=== PATIENT | female | born 1990 | race Caucasian/White ===

== ENCOUNTER 2017-06-01 19:18 | Emergency (ER) | payer OTHER, SELFPAY | END 2017-06-01 21:13 | disposition home or self-care (01) | PROVIDERS: Emergency Provider Emergency Medicine; Visit Provider Emergency Medicine | DX: N13.30 Unspecified hydronephrosis (principal) | CPT/HCPCS: 76770; 80048; 85025; 96361; 96374; 99058; 99284; J2405 ==

== ENCOUNTER 2018-12-06 10:22 | Emergency (ER) | payer SELFPAY ==
[2018-12-06 10:37] VITALS: BP 100/69; PULSE 70; RESP 12; TEMP 37.1; O2SAT 100
--- NOTE | 2018-12-06 11:16 | DI.US.S_ITS ---
PROCEDURE: US PELVIC COMPLETE INDICATIONS: ABD PAIN, UNABLE TO FEEL IUD STRINGS TECHNIQUE: Real-time scanning was performed of the pelvic organs, with image documentation. Additional endovaginal scanning was necessary due to incomplete visualization of the adnexal and endometrial structures by transabdominal scanning. COMPARISON: [facility], US, OB COMPLETE 14WKS OR MORE, 06/10/2017, 14:37. FINDINGS: Transabdominal scanning: Limited scanning through the kidneys shows no hydronephrosis. No pathologic free abdominal or pelvic fluid. Endovaginal scanning: Uterus: The uterus is normal in size and measures 8.0 x 4.1 x 5.4 cm. A small heterogeneous ovoid structure along the posterior aspect of the right uterus is identified that measures up to 2.5 cm. No additional myometrial lesions are evident. An intrauterine contraceptive device is appropriately positioned within the intrauterine cavity. The endometrium is normal in size and measures 6 mm in maximal combined thickness. No significant fluid is seen within the endometrium. Ovaries: The right ovary measures 3 point by 2.3 x 2.5 cm and is noted to be tender with sonographic imaging. No cystic or solid right ovary and lesion is evident. Normal follicles are present on the right ovary. Blood flow is demonstrated to the right ovary. However, an arterial Doppler waveform was not obtained. The left ovary is measuring within the upper limits of normal for size at approximately 4.8 x 2.5 x 2.2 cm. Follicles are present on the left ovary. There may be a small collapsing hemorrhagic left ovarian follicle measures up to approximately 1.6 x 0.9 cm. The left ovary is otherwise unremarkable. IMPRESSION: 1. Small intramural uterine fibroid. 2. Appropriately positioned intrauterine contraceptive device. 3. Unremarkable appearance of the ovaries with the exception of a possible small hemorrhagic/collapsing left ovarian follicle. No ovarian cysts. Dictated by: Khoa Villa M.D. on 12/06/2018 at 11:42 Approved by: Khoa Villa M.D. on 12/06/2018 at 11:45
--- NOTE | 2018-12-06 11:18 | ED.FEMALEGU ---
HPI - Female Genitourinary <DAGMAR Rinaldi - Last Filed: 12/06/18 13:26> General Chief complaint: Vaginal Bleeding Stated complaint: IUD issues Time Seen by Provider: 12/06/18 11:01 Source: patient Mode of arrival: Ambulatory Limitations: no limitations History of Present Illness HPI Narrative: The patient is a 28-year-old female nonsmoker who has had an IUD since August 2017 who presents with a chief complaint of abdominal pain and irregular vaginal bleeding. She states she had some vaginal bleeding yesterday. Complains of suprapubic cramping on going for the past few days. Has not taken anything to feel better. Denies any fevers nausea vomiting or diarrhea. She initially was concerned that her upset stomach was related to food intake. She denies any dysuria urgency or frequency. She states that she has not felt for her IUD strings for the past 6 months. She is not sure she still has it. She denies any possibility of sexually transmitted infections. She denies any regular vaginal discharge. States that her last bowel movement was this morning. Describes her abdominal pain is cramping 3/10. States she is unable to give a urine sample at this point. Related Data Previous Rx's Medication Instructions Recorded Breast Pump - Double Electric u SEE INSTRUCTIONS #1 04/10/17 Allergies Allergy/AdvReac Type Severity Reaction Status Date / Time No Known Allergies Allergy Mild Uncoded 12/06/18 10:40 Review of Systems <DAGMAR Rinaldi - Last Filed: 12/06/18 13:26> Review of Systems Narrative: GENERAL: Denies chills, fatigue, malaise, fever, sweats. HEENT: Denies sinus pain, ear pain, sore throat, difficulty swallowing, dizziness. RESPIRATORY: Denies dyspnea, cough, wheezing, hemoptysis, sputum. CARDIOVASCULAR: Denies chest pain, palpitations, orthopnea, edema, GASTROINTESTINAL: See HPI : See HPI MUSCULOSKELETAL: denies weakness, joint pain, or bony pain SKIN: Denies rash, skin lesions, or other NEUROLOGIC: Denies weakness, headache, numbness, change in speech, confusion, seizures, incoordination. PSYCHIATRIC: No concerning psychosocial issues. 12 point review of systems is negative except for those stated above PFSH <DAGMAR Rinaldi - Last Filed: 12/06/18 13:26> Medical History IUD (intrauterine device) in place (Acute) Social History Smoking Status: Never smoker Social History Smoking Status: Never smoker Exam <DAGMAR Rinaldi - Last Filed: 12/06/18 13:26> Narrative Exam Narrative: GENERAL: This is a well-nourished, well-developed patient, in no acute distress HEAD: Atraumatic. Normocephalic. No temporal or scalp tenderness. EYES: Pupils equal round and reactive. Extraocular motions intact. No scleral icterus. No injection or drainage. ENT: Nose without bleeding, purulent drainage or septal hematoma. Throat without erythema, tonsillar hypertrophy or exudate. Uvula midline. Airway patent. NECK: Trachea midline. No JVD or lymphadenopathy. Supple, nontender, no meningeal signs. CARDIOVASCULAR: Regular rate and rhythm without murmurs, gallops, or rubs. RESPIRATORY: Clear to auscultation. Breath sounds equal bilaterally. No wheezes, rales, or rhonchi. No cough. No increased respiratory effort. No accessory muscle use. No stridor, no accessory muscle use. GASTROINTESTINAL: Abdomen soft, suprapubic cramping to palpation, nondistended. No hepato-splenomegaly, or palpable masses. No guarding. Active bowel sounds all 4 quadrants. EXTREMITIES: No clubbing, cyanosis, or edema. No joint tenderness, effusion, or edema noted. BACK: Nontender without deformity or crepitance. No flank tenderness. No CVA tenderness bilaterally. NEURO: AOx3. SKIN: No rash or erythema. Initial Vital Signs Initial Vital Signs: Vital Signs Temperature 98.8 F 12/06/18 10:37 Pulse Rate 70 12/06/18 10:37 Respiratory Rate 12 12/06/18 10:37 Blood Pressure 100/69 12/06/18 10:37 Pulse Oximetry 100 12/06/18 10:37 <Radha Daniel DO - Last Filed: 12/06/18 17:08> Initial Vital Signs Initial Vital Signs: Vital Signs Temperature 98.8 F 12/06/18 10:37 Pulse Rate 70 10/05/19 10:37 Respiratory Rate 12 12/06/18 10:37 Blood Pressure 100/69 12/06/18 10:37 Pulse Oximetry 100 12/06/18 10:37 Scores <Amada AZAEL Ronquillo - Last Filed: 12/06/18 13:26> GCS Promise coma scale eye opening: Spontaneous [place] coma scale verbal response: Orientated Promise coma scale motor response: Obey commands [place] coma scale total score: 15 Course <Amada MeloAZAEL davis - Last Filed: 12/06/18 13:26> Orders Ordered: ED Orders 12/06/18 11:16 US pelvic complete Stat 12/06/18 12:30 Amylase Stat Complete Blood Count AUTO DIFF Stat Comprehensive Metabolic Panel Stat Lipase Stat Vital Signs Vital signs: Vital Signs - 8 hr 12/06/18 10:37 12/06/18 12:33 Temperature 98.8 F Pulse Rate 70 70 Respiratory Rate 12 16 Blood Pressure 100/69 Blood Pressure [Right Arm] 102/66 Pulse Oximetry 100 100 <Radha Daniel DO - Last Filed: 12/06/18 17:08> Orders Ordered: ED Orders 12/06/18 11:16 US pelvic complete Stat 12/06/18 12:30 Amylase Stat Complete Blood Count AUTO DIFF Stat Comprehensive Metabolic Panel Stat Lipase Stat Vital Signs Vital signs: Vital Signs - 8 hr 12/06/18 10:37 12/06/18 12:33 Temperature 98.8 F Pulse Rate 70 70 Respiratory Rate 12 16 Blood Pressure 100/69 Blood Pressure [Right Arm] 102/66 Pulse Oximetry 100 100 MDM - Female Genitourinary <[facility] - Last Filed: 12/06/18 13:26> Lab Data Result diagrams: 12/06/18 12:30 12/06/18 12:30 Labs: Lab Results 12/06/18 12/06/18 Range/Units 12:30 12:30 WBC 7.3 (4.5-11.0) X10^3/uL RBC 4.82 (4.0-5.2) X10^6/uL Hgb 14.2 (12.0-16.0) g/dL Hct 42.6 (36-46) % MCV 88.5 (80-100) fL MCH 29.4 (26-34) PG MCHC 33.3 (30-36) % RDW 13.3 (11.6-14.8) % Plt Count 247 (150-400) X10^3/uL Neut % (Auto) 60.5 (50-75) % Lymph % (Auto) 29.8 (25-40) % [place] % (Auto) 5.6 (3-14) % Eos % (Auto) 2.9 (2-4) % Baso % (Auto) 1.2 (0-2) % Neut # (Auto) 4400 (1892-5756) /uL Lymph # (Auto) 2200 (3701-0905) /uL [place] # (Auto) 400 (0-900) /uL Eos # (Auto) 200 (0-450) /uL Baso # (Auto) 100 (0-100) /uL Sodium 138 (137-145) mmol/L Potassium 3.9 (3.4-5.1) mmol/L Chloride 104 (98-107) mmol/L Carbon Dioxide 27 (22-32) mmol/L BUN 12 (7-17) mg/dL Creatinine 0.60 (0.52-1.04) mg/dL Estimated GFR > 60.0 (>60) mL/min BUN/Creatinine Ratio 20.0 (6-22) Glucose 82 (70-100) mg/dL Calcium 9.3 (8.4-10.2) mg/dL Total Bilirubin 0.8 (0.2-1.3) mg/dL AST 25 (14-36) IU/L ALT 25 (9-52) IU/L Alkaline Phosphatase 55 (38-126) U/L Total Protein 7.2 (6.3-8.2) g/dL Albumin 4.3 (3.5-5.0) g/dL Globulin 2.9 (1.7-4.1) g/dL Albumin/Globulin Ratio 1.5 (1.0-2.8) Amylase 89 (30-110) U/L Lipase 95 (23-300) U/L Point of Care Testing Test Results Negative Urine Dip Bedside Urine Glucose Negative Bedside Urine Bilirubin - Negative Bedside Urine Ketone - Negative Urine Specific [place] 1.010 Bedside Urine Occult Blood - Negative Bedside Urine pH 6.5 Bedside Urine Protein - Negative Bedside Urine Urobilinogen - Negative Bedside Urine Nitrite - Negative Bedside Urine Leukocytes - Negative Esterase Imaging Data pelvic US: Radiologist's impression: [address] [address] Ultrasound Report Signed Patient: Monica ToribioMR#: [id number] : 1990Acct:[id number] Age/Sex: 28 / FDate of Service: 12/06/18 Loc: ED Accession Number: [id number] Procedure: US pelvic complete Ordering Provider: Amada Ronquillo-MARITZA PROCEDURE: US PELVIC COMPLETE INDICATIONS: ABD PAIN, UNABLE TO FEEL IUD STRINGS TECHNIQUE: Real-time scanning was performed of the pelvic organs, with image documentation. Additional endovaginal scanning was necessary due to incomplete visualization of the adnexal and endometrial structures by transabdominal scanning. COMPARISON: [facility], US, OB COMPLETE 14WKS OR MORE, 06/10/2017, 14:37. FINDINGS: Transabdominal scanning: Limited scanning through the kidneys shows no hydronephrosis. No pathologic free abdominal or pelvic fluid. Endovaginal scanning: Uterus: The uterus is normal in size and measures 8.0 x 4.1 x 5.4 cm. A small heterogeneous ovoid structure along the posterior aspect of the right uterus is identified that measures up to 2.5 cm. No additional myometrial lesions are evident. An intrauterine contraceptive device is appropriately positioned within the intrauterine cavity. The endometrium is normal in size and measures 6 mm in maximal combined thickness. No significant fluid is seen within the endometrium. Ovaries: The right ovary measures 3 point by 2.3 x 2.5 cm and is noted to be tender with sonographic imaging. No cystic or solid right ovary and lesion is evident. Normal follicles are present on the right ovary. Blood flow is demonstrated to the right ovary. However, an arterial Doppler waveform was not obtained. The left ovary is measuring within the upper limits of normal for size at approximately 4.8 x 2.5 x 2.2 cm. Follicles are present on the left ovary. There may be a small collapsing hemorrhagic left ovarian follicle measures up to approximately 1.6 x 0.9 cm. The left ovary is otherwise unremarkable. IMPRESSION: 1. Small intramural uterine fibroid. 2. Appropriately positioned intrauterine contraceptive device. 3. Unremarkable appearance of the ovaries with the exception of a possible small hemorrhagic/collapsing left ovarian follicle. No ovarian cysts. Dictated by: Khoa Villa M.D. on 12/06/2018 at 11:42 Approved by: Khoa Villa M.D. on 12/06/2018 at 11:45 [facility] Narrative Medical decision making narrative: The patient is a 28-year-old female who presents with a chief complaint of lower abdominal cramping and slight vaginal bleeding. She is concerned about IUD placement as she has not checked her strings for at least 6 months. She does not have an acute abdomen exam, has stable vital signs and is afebrile. She has a normal urinalysis and negative , ruling out a UTI as well as pyelonephritis. She does not have any leukocytosis her labs and her lab work is overall normal. Ultrasound was done in order to evaluate for causes of lower abdominal pain such as ovarian torsion, which identified appropriately placed IUD as well as a small fibroid. I discussed at length the necessity of following up with her PCP as well as OBGYN hand. Patient states she does not have insurance, so I did discuss [facility] educational resource center teacher as well as [facility] if needed. Discussed coming back to the emergency department for any acute concerns such as chest pain, shortness of breath, some abdominal pain with fever etc. No questions or concerns upon discharge. Patient states understanding of follow-up care as well as return precautions. <Radha Daniel, - Last Filed: 12/06/18 17:08> Lab Data Labs: Lab Results 12/06/18 12/06/18 Range/Units 12:30 12:30 WBC 7.3 (4.5-11.0) X10^3/uL RBC 4.82 (4.0-5.2) X10^6/uL Hgb 14.2 (12.0-16.0) g/dL Hct 42.6 (36-46) % MCV 88.5 (80-100) fL MCH 29.4 (26-34) PG MCHC 33.3 (30-36) % RDW 13.3 (11.6-14.8) % Plt Count 247 (150-400) X10^3/uL Neut % (Auto) 60.5 (50-75) % Lymph % (Auto) 29.8 (25-40) % [place] % (Auto) 5.6 (3-14) % Eos % (Auto) 2.9 (2-4) % Baso % (Auto) 1.2 (0-2) % Neut # (Auto) 4400 (3546-9856) /uL Lymph # (Auto) 2200 (8809-9741) /uL [place] # (Auto) 400 (0-900) /uL Eos # (Auto) 200 (0-450) /uL Baso # (Auto) 100 (0-100) /uL Sodium 138 (137-145) mmol/L Potassium 3.9 (3.4-5.1) mmol/L Chloride 104 (98-107) mmol/L Carbon Dioxide 27 (22-32) mmol/L BUN 12 (7-17) mg/dL Creatinine 0.60 (0.52-1.04) mg/dL Estimated GFR > 60.0 (>60) mL/min BUN/Creatinine Ratio 20.0 (6-22) Glucose 82 (70-100) mg/dL Calcium 9.3 (8.4-10.2) mg/dL Total Bilirubin 0.8 (0.2-1.3) mg/dL AST 25 (14-36) IU/L ALT 25 (9-52) IU/L Alkaline Phosphatase 55 (38-126) U/L Total Protein 7.2 (6.3-8.2) g/dL Albumin 4.3 (3.5-5.0) g/dL Globulin 2.9 (1.7-4.1) g/dL Albumin/Globulin Ratio 1.5 (1.0-2.8) Amylase 89 (30-110) U/L Lipase 95 (23-300) U/L Point of Care Testing Test Results Negative Urine Dip Bedside Urine Glucose Negative Bedside Urine Bilirubin - Negative Bedside Urine Ketone - Negative Urine Specific [place] 1.010 Bedside Urine Occult Blood - Negative Bedside Urine pH 6.5 Bedside Urine Protein - Negative Bedside Urine Urobilinogen - Negative Bedside Urine Nitrite - Negative Bedside Urine Leukocytes - Negative Esterase Discharge Plan Departure Patient Disposition: Home Clinical Impression: Fibroid, IUD (intrauterine device) in place Discharge Date/Time: 12/06/18 13:36 Instructions: Facts About Fibroids, DI for Uterine Fibroids Activity Restrictions/Additional Instructions: Today we did blood work, imaging and checked your urine for infection. Your urine shows no signs of infection, your blood work came back normal. Your ultrasound shows an IUD in the appropriate place but also a small uterine fibroid, which could be causing your symptoms at this point. I suggest warm packs as well as anti-inflammatories such as ibuprofen or Aleve. Please follow up with primary care provider I have included Dr. Cervantes's information. I have also included contact information for the [facility] educational resource center teacher, who can help you identify primary care providers. Please come back to the emergency department for any acute concerns such as chest pain, shortness of breath, sudden severe abdominal pain, abdominal pain with fever etc Prescriptions: No Action Breast Pump - Double Electric SEE INSTRUCTIONS Qty: 1 RF: 0 Referrals: [facility] [Outside] Zoë Cervantes MD [Primary Care Provider] -
[2018-12-06 12:33] VITALS: BP 102/66; PULSE 70; RESP 16; O2SAT 100
[2018-12-06 12:39] LABS: Add Manual Diff / Slide Review NO; Basophils Absolute Auto 100 /uL (0-100); Basophils Percent Auto 1.2 % (0-2); Eosinophils Absolute Auto 200 /uL (0-450); Eosinophils Percent Auto 2.9 % (2-4); Hematocrit 42.6 % (36-46); Hemoglobin 14.2 g/dL (12.0-16.0); Lymphocytes Absolute Auto 2200 /uL (1100-4500); Lymphocytes Percent Auto 29.8 % (25-40); Mean Corpuscular HGB Conc 33.3 % (30-36); Mean Corpuscular Hemoglobin 29.4 PG (26-34); Mean Corpuscular Volume 88.5 fL (80-100); Monocytes Absolute Auto 400 /uL (0-900); Monocytes Percent Auto 5.6 % (3-14); Neutrophils Absolute Auto 4400 /uL (1500-7000); Neutrophils Percent Auto 60.5 % (50-75); Platelet Count 247 X10^3/uL (150-400); Red Blood Cell Count 4.82 X10^6/uL (4.0-5.2); Red Cell Distribution Width 13.3 % (11.6-14.8); White Blood Cell Count 7.3 X10^3/uL (4.5-11.0)
[2018-12-06 12:54] LABS: Alanine Aminotransferase 25 IU/L (9-52); Albumin 4.3 g/dL (3.5-5.0); Albumin Globulin Ratio 1.5 (1.0-2.8); Alkaline Phosphatase 55 U/L (38-126); Amylase 89 U/L (30-110); Aspartate Aminotransferase 25 IU/L (14-36); Bilirubin Total 0.8 mg/dL (0.2-1.3); Blood Urea Nitrogen 12 mg/dL (7-17); Calcium 9.3 mg/dL (8.4-10.2); Carbon Dioxide 27 mmol/L (22-32); Chloride 104 mmol/L (98-107); Estimated Glomerular Filt Rate > 60.0 mL/min (>60); Globulin 2.9 g/dL (1.7-4.1); Glucose 82 mg/dL (70-100); HEMOLYSIS < 15 (0-50); Lipase 95 U/L (23-300); Potassium 3.9 mmol/L (3.4-5.1); Sodium 138 mmol/L (137-145); Total Protein 7.2 g/dL (6.3-8.2)
== END 2018-12-06 13:36 | disposition home or self-care (01) ==
PROVIDERS: Emergency Provider Nurse Practitioner Family; PCP Specialist
DX: D25.1 Intramural leiomyoma of uterus (principal); Z97.5 Presence of (intrauterine) contraceptive device
CPT/HCPCS: 36415; 76830; 76856; 80053; 81003; 81025; 82150; 83690; 85025; 99282; 99284

== ENCOUNTER → 2020-02-08 09:08 | Outpatient (CLI) | payer SELFPAY | PROVIDERS: PCP Specialist; Visit Provider Physician Assistant | DX: R10.2 Pelvic and perineal pain (principal) | CPT/HCPCS: 87086 ==

== ENCOUNTER 2021-03-15 10:13 | Emergency (ER) | payer OTHER, SELFPAY ==
[2021-03-15] VITALS (10 sets, daily range): BP systolic 108–125; BP diastolic 56–82; PULSE 61–88; RESP 14–28; TEMP 36.1–36.8; O2SAT 99–100; BMI 18.3
[2021-03-15 10:51] LABS: Add Manual Diff / Slide Review NO; Basophils Absolute Auto 0 /uL (0-100); Basophils Percent Auto 0.9 % (0-2); Eosinophils Absolute Auto 200 /uL (0-450); Eosinophils Percent Auto 3.8 % (2-4); Hematocrit 38.3 % (36-46); Hemoglobin 12.7 g/dL (12.0-16.0); Lymphocytes Absolute Auto 1600 /uL (1100-4500); Lymphocytes Percent Auto 38.7 % (25-40); Mean Corpuscular HGB Conc 33.1 % (30-36); Mean Corpuscular Hemoglobin 29.3 PG (26-34); Mean Corpuscular Volume 88.4 fL (80-100); Monocytes Absolute Auto 300 /uL (0-900); Monocytes Percent Auto 6.2 % (3-14); Neutrophils Absolute Auto 2100 /uL (1500-7000); Neutrophils Percent Auto 50.4 % (50-75); Platelet Count 243 X10^3/uL (150-400); Red Blood Cell Count 4.33 X10^6/uL (4.0-5.2); Red Cell Distribution Width 13.1 % (11.6-14.8); White Blood Cell Count 4.1 X10^3/uL (4.5-11.0)
[2021-03-15 11:05] LABS: Alanine Aminotransferase 16 IU/L (<35); Albumin 4.3 g/dL (3.5-5.0); Albumin Globulin Ratio 1.6 (1.0-2.8); Alkaline Phosphatase 35 U/L (38-126); Aspartate Aminotransferase 28 IU/L (14-36); BUN Creatinine Ratio 18.3 (6-22); Bilirubin Total 0.4 mg/dL (0.2-1.3); Blood Urea Nitrogen 11 mg/dL (7-17); Calcium 8.9 mg/dL (8.4-10.2); Carbon Dioxide 27 mmol/L (22-32); Chloride 106 mmol/L (98-107); Estimated Glomerular Filt Rate > 60.0 mL/min (>60); Globulin 2.7 g/dL (1.7-4.1); Glucose 81 mg/dL (70-100); HEMOLYSIS < 15 (0-50); Lipase 130 U/L (23-300); Potassium 3.4 mmol/L (3.4-5.1); Sodium 139 mmol/L (137-145)
[2021-03-15 11:14] LABS: Bacteria Urine Moderate (10-30); Mucus Urine 1+ (Negative); RBC Urine 0-1/HPF (0-5/HPF); Squamous Epithelial Cell Urine 1-5 /HPF (0-5/HPF); WBC Urine 1-5/HPF (0-5/HPF)
--- NOTE | 2021-03-15 14:35 | DI.CT.S_ITS ---
PROCEDURE: CT ABDOMEN PELVIS W CON INDICATIONS: IV contrast only/lower abdominal pain TECHNIQUE: After the administration of intravenous contrast, axial sections acquired from the lung bases to the pubic symphysis. Coronal and sagittal reformats were performed. For radiation dose reduction, the following was used: automated exposure control, adjustment of mA and/or kV according to patient size. COMPARISON: [employer] [facility], US, US PELVIC COMPLETE, 03/14/2020, 15:30. FINDINGS: Included portions of the lung bases are clear. No pneumoperitoneum. No abnormally dilated or obviously thickened loop of bowel. No pericolonic or mesenteric inflammatory changes. Normal caliber and otherwise unremarkable appendix. Normal CT appearance of the liver, spleen, pancreas, gallbladder, and adrenal glands. Mild incomplete ascent of the right kidney. No hydroureteronephrosis or urinary tract calculus. Nonaneurysmal abdominal aorta. No threshold enlarged intra-abdominal, retroperitoneal, pelvic, or inguinal lymph node. Moderate volume free pelvic fluid of intermediate density. Bilateral low-density adnexal lesions are nonspecific. Fluid in the uterine cavity presumably related to menstrual activity. Urinary bladder is normal. No acute or suspicious osseous lesion. IMPRESSION: Moderate volume intermediate density free fluid in the pelvis is presumably related to ruptured hemorrhagic cysts. Pelvic ultrasound is pending. Dictated by: William Penn M.D. on 03/15/2021 at 14:20 Approved by: William Penn M.D. on 03/15/2021 at 14:25
--- NOTE | 2021-03-15 14:35 | ED_ITS ---
HPI - Abdominal Pain General Chief Complaint: Abdominal Pain Stated Complaint: abdominal pain Time Seen by Provider: 03/15/21 14:14 Source: patient Mode of arrival: Ambulatory History of Present Illness HPI narrative: Patient here for lower abdominal pain ongoing 3 days. Slow onset on Saturday. No nausea vomiting diarrhea no urinary complaints. Pain is sharp burning crampy achy bloating and radiates to the lower back. No changes in bowel movements. No constipation. Denies . Related Data Previous Rx's Medication Instructions Recorded norethindrone acetate 1 mg-ethinyl 1 tab PO DAILY #21 tab 03/16/20 estradiol 20 mcg tablet (Loestrin) Allergies Allergy/AdvReac Type Severity Reaction Status Date / Time Penicillins AdvReac Intermediate swelling Verified 03/15/21 10:30 Review of Systems Review of Systems Narrative: GENERAL: Denies chills, fatigue, malaise, fever, sweats. HEENT: Denies sinus pain, ear pain, sore throat RESPIRATORY: Denies dyspnea, cough CARDIOVASCULAR: Denies chest pain, palpitations GASTROINTESTINAL: Denies nausea, vomiting, positive for abdominal pain : Denies dysuria, frequency, hematuria MUSCULOSKELETAL: denies muscle or bony pain SKIN: Denies rash, skin lesions NEUROLOGIC: Denies weakness, numbness ROS Unobtainable: All systems reviewed & are unremarkable except as noted in HPI and below Patient History Medical History Left flank pain Social History Smoking Status: Never smoker Smoking Status: Never smoker alcohol intake frequency: holidays/special occasions only Substance Use Type: does not use Exam Narrative Exam Narrative: GENERAL: in no distress, not toxic not dyspneic HEAD: Normocephalic. EYES: Pupils equal round No scleral icterus. NECK: Trachea midline. CARDIOVASCULAR: Regular rate and rhythm without murmurs RESPIRATORY: Clear to auscultation. Breath sounds equal bilaterally. No wheezes, rales, or rhonchi. GASTROINTESTINAL: Abdomen soft, bowel sounds present, symmetric bilateral lower abdominal tenderness, no peritoneal signs. EXTREMITIES: No gross deformities. BACK: No flank tenderness. NEURO: AOx4. SKIN: Warm and dry PSYCH: Not anxious, is cooperative Initial Vital Signs Initial Vital Signs: Vital Signs Temperature 97.0 F L 03/15/21 10:30 Pulse Rate 75 03/15/21 10:30 Respiratory Rate 14 03/15/21 10:30 Blood Pressure 125/62 03/15/21 10:30 Pulse Oximetry 100 03/15/21 10:30 Course Course Course Narrative: No new issues during course of stay Orders Ordered: Discontinued Medications Sodium Chloride (Normal Saline 0.9%) 1,000 mls @ 1,000 mls/hr IV BOLUS ONE Stop: 03/15/21 15:33 Last Infusion: 03/15/21 16:49 Dose: 0 mls/hr Documented by: Admin: 03/15/21 15:33 Dose: 1,000 mls/hr Documented by: FARZAD Morphine Sulfate (Morphine 4 Mg/Ml Inj) 4 mg IV NOW ONE Stop: 03/15/21 14:35 Last Admin: 03/15/21 15:32 Dose: 4 mg Documented by: FARZAD Ondansetron HCl (Ondansetron 4 Mg/2 Ml Inj) 4 mg IV NOW ONE Stop: 03/15/21 14:35 Last Admin: 03/15/21 15:32 Dose: 4 mg Documented by: FARZAD Reevaluation(s) Reevaluation #1: Updated patient results of ultrasound CT scan laboratory studies. At this time likely ovarian cyst. Pain is much better. Return precautions reviewed with her. She states her chief embalmer is Dr. Cervantes. She states she was on control pills. Time: 17:10 Vital Signs Vital signs: Vital Signs - 8 hr 03/15/21 10:30 03/15/21 14:05 03/15/21 14:12 Temperature 97.0 F L 98.2 F Pulse Rate 75 63 63 Respiratory Rate 14 15 Blood Pressure 125/62 113/70 Pulse Oximetry 100 100 100 03/15/21 14:13 Temperature Pulse Rate 61 Respiratory Rate 16 Blood Pressure 108/77 Pulse Oximetry 100 MDM - Abdominal Pain Differential Diagnosis Differential diagnosis: Likely abdominal pain, acute appendicitis, constipation, small bowel obstruction and other (Ovarian cyst) Lab Data Result diagrams: 03/15/21 10:42 03/15/21 10:42 Labs: Lab Results 03/15/21 03/15/21 03/15/21 Range/Units 10:30 10:42 10:42 WBC 4.1 L (4.5-11.0) X10^3/uL RBC 4.33 (4.0-5.2) X10^6/uL Hgb 12.7 (12.0-16.0) g/dL Hct 38.3 (36-46) % MCV 88.4 (80-100) fL MCH 29.3 (26-34) PG MCHC 33.1 (30-36) % RDW 13.1 (11.6-14.8) % Plt Count 243 (150-400) X10^3/uL Neut % (Auto) 50.4 (50-75) % Lymph % (Auto) 38.7 (25-40) % Wake % (Auto) 6.2 (3-14) % Eos % (Auto) 3.8 (2-4) % Baso % (Auto) 0.9 (0-2) % Neut # (Auto) 2100 (5414-9501) /uL Lymph # (Auto) 1600 (1881-4582) /uL Wake # (Auto) 300 (0-900) /uL Eos # (Auto) 200 (0-450) /uL Baso # (Auto) 0 (0-100) /uL Sodium 139 (137-145) mmol/L Potassium 3.4 (3.4-5.1) mmol/L Chloride 106 (98-107) mmol/L Carbon Dioxide 27 (22-32) mmol/L BUN 11 (7-17) mg/dL Creatinine 0.60 (0.52-1.04) mg/dL Estimated GFR > 60.0 (>60) mL/min BUN/Creatinine Ratio 18.3 (6-22) Glucose 81 (70-100) mg/dL Calcium 8.9 (8.4-10.2) mg/dL Total Bilirubin 0.4 (0.2-1.3) mg/dL AST 28 (14-36) IU/L ALT 16 (<35) IU/L Alkaline Phosphatase 35 L (38-126) U/L Total Protein 7.0 (6.3-8.2) g/dL Albumin 4.3 (3.5-5.0) g/dL Globulin 2.7 (1.7-4.1) g/dL Albumin/Globulin Ratio 1.6 (1.0-2.8) Lipase 130 (23-300) U/L Urine RBC 0-1/hpf (0-5/HPF) Urine WBC 1-5/hpf (0-5/HPF) Ur Squamous Epith Cells 1-5 /hpf (0-5/HPF) Urine Bacteria Moderate (10-30) H (None) Urine Mucus 1+ H (Negative) Ur Culture Indicated? Culture not indicate Point of care testing: Point of Care Testing Test Results Negative Urine Dip Bedside Urine Glucose Negative Bedside Urine Bilirubin - Negative Bedside Urine Ketone - Negative Urine Specific [place] 1.030 Bedside Urine Occult Blood + Bedside Urine pH 6 Bedside Urine Protein - Negative Bedside Urine Urobilinogen - Negative Bedside Urine Nitrite - Negative Bedside Urine Leukocytes - Negative Esterase Imaging Data CT scan - abdomen/pelvis: Radiologist's Impression: [address] [address] [address] Scan Report Signed Patient: Monica Toribio MR#: [id number] : 1990 Acct:[id number] Age/Sex: 30 / F Date of Service: 03/15/21 Loc: ED Accession Number: [id number] ?? Procedure: CT abdomen pelvis w con Ordering Provider: Ja Loja MD PROCEDURE:? CT ABDOMEN PELVIS W CON ? INDICATIONS:? IV contrast only/lower abdominal pain ? TECHNIQUE:? After the administration of intravenous contrast, axial sections acquired from the lung bases to the pubic symphysis.? Coronal and sagittal reformats were performed.? For radiation dose reduction, the following was used:? automated exposure control, adjustment of mA and/or kV according to patient size.? ? COMPARISON:? [facility], [place], US PELVIC COMPLETE, 03/14/2020, 15:30. ? FINDINGS:? ? Included portions of the lung bases are clear. ? No pneumoperitoneum.? No abnormally dilated or obviously thickened loop of bowel.? No pericolonic or mesenteric inflammatory changes.? Normal caliber and otherwise unremarkable appendix. ? Normal CT appearance of the liver, spleen, pancreas, gallbladder, and adrenal gl ands.? Mild incomplete ascent of the right kidney.? No hydroureteronephrosis or urinary tract calculus. ? Nonaneurysmal abdominal aorta. ? No threshold enlarged intra-abdominal, retroperitoneal, pelvic, or inguinal lymph node. Moderate volume free pelvic fluid of intermediate density.? Bilateral low- density adnexal lesions are nonspecific.? Fluid in the uterine cavity presumably related to menstrual activity.? Urinary bladder is normal. ? No acute or suspicious osseous lesion. ? IMPRESSION:? Moderate volume intermediate density free fluid in the pelvis is presumably related to ruptured hemorrhagic cysts.? Pelvic ultrasound is pending. ? ? Dictated by: William Penn M.D. on 03/15/2021 at 14:20 ? ? Approved by: William Penn M.D. on 03/15/2021 at 14:25 ? US - [employer]ER: Radiologist's Impression: [place] [address] Ultrasound Report Signed Patient: Monica Toribio MR#: [id number] : 1990 Acct:[id number] Age/Sex: 30 / F Date of Service: 03/15/21 Loc: ED Accession Number: [id number] ?? Procedure: US pelvic complete Ordering Provider: Ja Loja MD PROCEDURE:? US PELVIC COMPLETE ? INDICATIONS:? PELVIC PAIN ? TECHNIQUE:? Real-time scanning was performed of the pelvic organs, with image documentation.? Additional endovaginal scanning was necessary due to incomplete visualization of the adnexal and endometrial structures by transabdominal scanning.? ? COMPARISON:? [facility], , US PELVIC COMPLETE, 03/14/2020, 15:30. ? FINDINGS:? ?? Uterus:? Uterus is retroverted and normal in size at 7 x 4.6 x 5.6 cm. The myometrium is homogeneous.? Tiny 0.8 x 0.9 x 1 cm intramural fibroid is seen in anterior my ometrium near midline.? The endometrium measures 3.9 mm combined thickness.? No gross endometrial mass or fluid. ? Ovaries:? The right ovary measures 3.9 x 2.2 x 1.9 cm. The left ovary measures 5.1 x 2.5 x 2.7 cm. The ovaries have a normal sonographic appearance.? Less than 12 follicles can be seen in each ovary.? There is a 1.8 x 2.2 x 1.8 cm echogenic area within left ovary containing 1.6 x 1.3 x 1.3 cm 6 cystic area.? No internal vascularity is seen.? No adnexal masses are seen. ? Other:? No pathologic free abdominal or pelvic fluid. ? ? IMPRESSION:? 1. Tiny uterine fibroid as above.? No endometrial mass or fluid.? Physiologic amount of free fluid in lower pelvis. 2. Normal appearing right ovary.? Ill-defined 1.8 x 2.2 x 1.8 cm mildly echogenic area within left ovary containing internal cystic area as above and is of indeterminate etiology.? No internal vascularity is seen.? Ultrasound follow-up in 4-6 weeks is recommended . ? We strive to produce accurate, complete, and clear reports of imaging services. To assist us in improving patient care, this report was composed using standard report templates and voice recognition software. Therefore, it may contain abnormal punctuation, insertions and/or omissions. Occasional wrong-word or sound-alike substitutions may occur. Though we review the report and make efforts to correct it, we do recommend that the report be read carefully in proper context to recognize any text inaccuracies. ? ? Dictated by: Tulio Ramsay M.D. on 03/15/2021 at 16:50 ? ? Approved by: Tulio Ramsay M.D. on 03/15/2021 at 16:57 ? MDM Narrative Medical decision making narrative: Appropriate for discharge home. Exam and laboratory studies and imaging otherwise reassuring. Pain control at time of discharge. Return precautions reviewed with her. She does have follow-up chief embalmer to call tomorrow. 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 She desires discharge home. Not toxic at discharge. Discharge Plan Departure Patient Disposition: Home Clinical Impression: Ovarian cyst Instructions: DI for Ovarian Cyst Activity Restrictions/Additional Instructions: Call Dr. Cervantes in the morning for office recheck within a week and to schedule for follow-up comparison ultrasound of ovarian cysts from today. May continue home Tylenol or ibuprofen for pain. Return if worse or for any questions or con cerns Prescriptions: No Action norethindrone ac-eth estradiol [Loestrin 03/23 ()] 1-20 mg-mcg tablet 1 tab PO DAILY Qty: 21 5RF Referrals: Zoë Cervantes MD [Primary Care Provider] -
[2021-03-15] MEDS: MORPHINE 4 MG/ML INJ IV (15:32)
[2021-03-15] MEDS: ONDANSETRON 4 MG/2 ML INJ IV (15:32)
[2021-03-15] MEDS: SODIUM CHLORIDE 0.9% 1,000 ML 1000 ML IV (15:33)
--- NOTE | 2021-03-15 15:36 | DI.US.S_ITS ---
PROCEDURE: US PELVIC COMPLETE INDICATIONS: PELVIC PAIN TECHNIQUE: Real-time scanning was performed of the pelvic organs, with image documentation. Additional endovaginal scanning was necessary due to incomplete visualization of the adnexal and endometrial structures by transabdominal scanning. COMPARISON: [facility], US, US PELVIC COMPLETE, 03/14/2020, 15:30. FINDINGS: Uterus: Uterus is retroverted and normal in size at 7 x 4.6 x 5.6 cm. The myometrium is homogeneous. Tiny 0.8 x 0.9 x 1 cm intramural fibroid is seen in anterior myometrium near midline. The endometrium measures 3.9 mm combined thickness. No gross endometrial mass or fluid. Ovaries: The right ovary measures 3.9 x 2.2 x 1.9 cm. The left ovary measures 5.1 x 2.5 x 2.7 cm. The ovaries have a normal sonographic appearance. Less than 12 follicles can be seen in each ovary. There is a 1.8 x 2.2 x 1.8 cm echogenic area within left ovary containing 1.6 x 1.3 x 1.3 cm 6 cystic area. No internal vascularity is seen. No adnexal masses are seen. Other: No pathologic free abdominal or pelvic fluid. IMPRESSION: 1. Tiny uterine fibroid as above. No endometrial mass or fluid. Physiologic amount of free fluid in lower pelvis. 2. Normal appearing right ovary. Ill-defined 1.8 x 2.2 x 1.8 cm mildly echogenic area within left ovary containing internal cystic area as above and is of indeterminate etiology. No internal vascularity is seen. Ultrasound follow-up in 4-6 weeks is recommended . We strive to produce accurate, complete, and clear reports of imaging services. To assist us in improving patient care, this report was composed using standard report templates and voice recognition software. Therefore, it may contain abnormal punctuation, insertions and/or omissions. Occasional wrong-word or sound-alike substitutions may occur. Though we review the report and make efforts to correct it, we do recommend that the report be read carefully in proper context to recognize any text inaccuracies. Dictated by: Tulio Ramsay M.D. on 03/15/2021 at 16:50 Approved by: Tulio Ramsay M.D. on 03/15/2021 at 16:57
== END 2021-03-15 17:19 | disposition home or self-care (01) ==
PROVIDERS: Emergency Provider Emergency Medicine; PCP Specialist
DX: N83.202 Unspecified ovarian cyst, left side (principal)
CPT/HCPCS: 36415; 74177; 76830; 76856; 80053; 81003; 81015; 81025; 83690; 85025; 87086; 96361; 96374; 96375; 99284; J2270; J2405; Q9967

== ENCOUNTER 2025-02-23 12:22 | Emergency (ER) | payer BC, MEDICAID, SELFPAY ==
[2025-02-23 13:00] VITALS: BP 101/67; PULSE 89; RESP 16; TEMP 37.2; O2SAT 99; BMI 18.5
[2025-02-23 13:42] LABS: Add Manual Diff / Slide Review NO; Hematocrit 39.4 % (36-46); Hemoglobin 13.3 g/dL (12.0-16.0); Lymphocytes Absolute Auto 1500 /uL (1100-4500); Mean Corpuscular HGB Conc 33.8 % (30-36); Mean Corpuscular Hemoglobin 29.0 PG (26-34); Mean Corpuscular Volume 85.7 fL (80-100); Platelet Count 264 X10^3/uL (150-400)
--- NOTE | 2025-02-23 13:45 | DI.US.S_ITS ---
PROCEDURE: US PELVIC COMPLETE INDICATIONS: CRAMPING AT 5 WKS GEST TECHNIQUE: Real-time scanning was performed of the pelvic organs, with image documentation. Additional endovaginal scanning was necessary due to incomplete visualization of the adnexal and endometrial structures by transabdominal scanning. COMPARISON: None. FINDINGS: Uterus: Uterus is retroverted and normal in size at 8.2 x 5.9 x 6.5 cm. The myometrium is heterogeneous. The endometrium measures 10.2 mm combined thickness. No intrauterine gestational identified. Ovaries: The right ovary measures 2.5 x 5.0 x 2.2 cm, with a calculated ovarian volume of 14 cc. The left ovary measures 2.1 x 2.6 x 2.3 cm, with a calculated ovarian volume of 6.4 cc. Thick-walled right ovarian cystic lesion measuring 2.0 centimeter. This has a continuous margin with the adjacent ovary. Other: No pathologic free abdominal or pelvic fluid. IMPRESSION: of unknown location, as no intrauterine is seen and there is no adnexal mass. The differential includes early gestational , ectopic or miscarriage. Trending beta hCGs and sonographic follow-up as necessary. Suspected right corpus luteum. Ovarian ectopic is exceedingly rare and less likely. We strive to produce accurate, complete, and clear reports of imaging services. To assist us in improving patient care, this report was composed using standard report templates and voice recognition software. Therefore, it may contain abnormal punctuation, insertions and/or omissions. Occasional wrong-word or sound-alike substitutions may occur. Though we review the report and make efforts to correct it, we do recommend that the report be read carefully in proper context to recognize any text inaccuracies. Dictated by: Cornell Bhakta M.D. on 02/23/2025 at 15:21 Approved by: Cornell Bhakta M.D. on 02/23/2025 at 15:23
[2025-02-23 13:55] LABS: Alanine Aminotransferase 17 IU/L (<35); Albumin 4.7 g/dL (3.5-5.0); Albumin Globulin Ratio 1.5 (1.0-2.8); Alkaline Phosphatase 49 U/L (38-126); Blood Urea Nitrogen 8 mg/dL (7-17); Calcium 9.0 mg/dL (8.4-10.2); Carbon Dioxide 24 mmol/L (22-32); Chloride 107 mmol/L (98-107); Estimated Glomerular Filt Rate > 60 mL/min (>60); Globulin 3.1 g/dL (1.7-4.1); Glucose 62 mg/dL (70-99); HEMOLYSIS < 15 (0-50); Potassium 3.6 mmol/L (3.4-5.1); Sodium 139 mmol/L (137-145); Total Protein 7.8 g/dL (6.3-8.2)
[2025-02-23 14:12] LABS: HCG Quantitative /Beta subunit 384.91 mIU/mL
[2025-02-23 14:29] LABS: Culture Indicated Urine Cult Not Indicated
[2025-02-23 15:43] VITALS: BP 100/61; PULSE 82; RESP 16; O2SAT 99
--- NOTE | 2025-02-23 15:59 | ED.PREGNANCY ---
HPI - <Yajaira Pereira PA-C - Last Filed: 02/23/25 16:06> General Chief complaint: OB/Uterine Contractions Stated complaint: 5weeks cramping Time Seen by Provider: 02/23/25 13:45 Source: patient Mode of arrival: Ambulatory Limitations: no limitations History of Present Illness HPI Narrative: 34-year-old female who is 5 weeks presents to the ED today with 2 days of vaginal spotting and pelvic cramping. Patient lists January 13 as her LMP. No chest pain, shortness of breath, lightheadedness, dizziness, syncope. Related Data Home Medications ?Medication ?Instructions ?Recorded ?Confirmed No Known Home Medications 10/29/24 10/29/24 Allergies Allergy/AdvReac Type Severity Reaction Status Date / Time Penicillins AdvReac Intermediate swelling Verified 10/29/24 11:22 Review of Systems <Yajaira Pereira PA-C - Last Filed: 02/23/25 16:06> Constitutional Constitutional: Denies chills, Denies fatigue, Denies fever(s), Denies frequent falls, Denies lethargy and Denies weakness Eyes Eyes: Denies change in vision, Denies eye discharge, Denies irritation and Denies loss of vision ENT Ears, Nose, Mouth, and Throat: Denies change in voice, Denies dizziness, Denies neck pain, Denies sore throat and Denies throat swelling Cardiovascular Cardiovascular: Denies chest pain, Denies irregular heart rhythm, Denies lightheadedness, Denies palpitations, Denies dyspnea, Denies dyspnea on exertion and Denies orthopnea Respiratory Respiratory: Denies cough, Denies dyspnea, Denies dyspnea on exertion and Denies wheezing Gastrointestinal Gastrointestinal: Denies abdominal pain, Denies change in bowel habits, Denies diarrhea, Denies nausea and Denies vomiting Genitourinary Genitourinary: Reports abnormal vaginal bleeding and Reports pelvic pain Musculoskeletal Musculoskeletal: Denies neck pain and Denies numbness Integumentary/Breasts Skin/Breast: Denies pruritus, Denies erythema, Denies rash and Denies wounds Neurologic Neurologic: Denies behavioral changes, Denies confusion, Denies dizziness, Denies frequent falls, Denies loss of vision, Denies numbness and Denies weakness Psychiatric Psychiatric: Denies anxiety, Denies behavioral changes, Denies confusion, Denies depression, Denies homicidal ideation and Denies suicidal ideation Endocrine Endocrine: Denies fatigue, Denies flushing and Denies palpitations Hematologic/Lymphatic Hematologic/Lymphatic: Denies easy bruising Allergic/Immunologic Allergic/Immunologic: Denies urticaria, Denies throat swelling and Denies wheezing Exam <Yajaira Pereira PA-C - Last Filed: 02/23/25 16:06> Narrative Exam Narrative: Const General:?cooperative, healthy appearing and comfortable [facility] Head:?normal to inspection Ears:?hearing grossly normal bilaterally Nose:?external nose normal Face and sinus:?normal facial exam and sinuses nontender Mouth:?oral mucosae normal Throat:?posterior oropharynx normal Eyes General:?appearance normal, both eyes and all related structures Neck Neck:?normal visual inspection and no lymphadenopathy noted Resp Effort & Inspection:?normal respiratory effort Auscultation:?clear to auscultation bilaterally Cardio Rate:?regular rate Rhythm:?regular rhythm Neuro General:?patient alert, patient awake and patient oriented x3 Initial Vital Signs Initial Vital Signs: Vital Signs Temperature 99 F 02/23/25 13:00 Pulse Rate 89 02/23/25 13:00 Respiratory Rate 16 02/23/25 13:00 Blood Pressure 101/67 02/23/25 13:00 Pulse Oximetry 99 02/23/25 13:00 Oxygen Delivery Method Room Air 02/23/25 13:00 <Amada Painter DO - Last Filed: 02/24/25 10:10> Initial Vital Signs Initial Vital Signs: Vital Signs Temperature 99 F 02/23/25 13:00 Pulse Rate 89 02/23/25 13:00 Respiratory Rate 16 02/23/25 13:00 Blood Pressure 101/67 02/23/25 13:00 Pulse Oximetry 99 02/23/25 13:00 Oxygen Delivery Method Room Air 02/23/25 13:00 Course <Yajaira Pereira PA-C - Last Filed: 02/23/25 16:06> Orders Ordered: ED Orders 02/23/25 13:10 Urine Microscopic Stat 02/23/25 13:16 ABO RH Type Stat Complete Blood Count AUTO DIFF Stat Comprehensive Metabolic Panel Stat HCG Quantitative /Beta subunit Stat 02/23/25 13:45 US pelvic complete Stat Vital Signs Vital signs: Vital Signs - 8 hr 02/23/25 13:00 02/23/25 15:43 Temperature 99 F Pulse Rate 89 82 Respiratory Rate 16 16 Blood Pressure 101/67 100/61 Pulse Oximetry 99 99 Oxygen Delivery Method Room Air Room Air <Amada Painter DO - Last Filed: 02/24/25 10:10> Orders Ordered: ED Orders 02/23/25 13:10 Urine Microscopic Stat 02/23/25 13:16 ABO RH Type Stat Complete Blood Count AUTO DIFF Stat Comprehensive Metabolic Panel Stat HCG Quantitative /Beta subunit Stat 02/23/25 13:45 US pelvic complete Stat Vital Signs Vital signs: Vital Signs - 8 hr 02/23/25 13:00 02/23/25 15:43 Temperature 99 F Pulse Rate 89 82 Respiratory Rate 16 16 Blood Pressure 101/67 100/61 Pulse Oximetry 99 99 Oxygen Delivery Method Room Air Room Air MDM - OB/Uterine Contractions <Yajaira Pereira PA-C - Last Filed: 02/23/25 16:06> Lab Data 02/23/25 13:16 02/23/25 13:16 Labs: Lab Results 02/23/25 02/23/25 Range/Units 13:10 13:16 WBC 9.2 (4.5-11.0) X10^3/uL RBC 4.59 (4.0-5.2) X10^6/uL Hgb 13.3 (12.0-16.0) g/dL Hct 39.4 (36-46) % MCV 85.7 (80-100) fL MCH 29.0 (26-34) PG MCHC 33.8 (30-36) % RDW 13.8 (11.6-14.8) % Plt Count 264 (150-400) X10^3/uL Neut % (Auto) 74.4 (50-75) % Lymph % (Auto) 16.8 L (25-40) % Treasure % (Auto) 6.4 (3-14) % Eos % (Auto) 1.8 L (2-4) % Baso % (Auto) 0.6 (0-2) % Neut # (Auto) 6800 (2749-5143) /uL Lymph # (Auto) 1500 (4626-0969) /uL Treasure # (Auto) 600 (0-900) /uL Eos # (Auto) 200 (0-450) /uL Baso # (Auto) 100 (0-100) /uL Sodium 139 (137-145) mmol/L Potassium 3.6 (3.4-5.1) mmol/L Chloride 107 (98-107) mmol/L Carbon Dioxide 24 (22-32) mmol/L BUN 8 (7-17) mg/dL Creatinine 0.62 (0.52-1.04) mg/dL Estimated GFR > 60 (>60) mL/min BUN/Creatinine Ratio 12.9 (6-22) Glucose 62 L (70-99) mg/dL Calcium 9.0 (8.4-10.2) mg/dL Total Bilirubin 0.5 (0.2-1.3) mg/dL AST 23 (14-36) IU/L ALT 17 (<35) IU/L Alkaline Phosphatase 49 (38-126) U/L Total Protein 7.8 (6.3-8.2) g/dL Albumin 4.7 (3.5-5.0) g/dL Globulin 3.1 (1.7-4.1) g/dL Albumin/Globulin Ratio 1.5 (1.0-2.8) HCG, Quant 384.91 mIU/mL Urine RBC 10-30/hpf H (0-5/HPF) Urine WBC None seen (0-5/HPF) Ur Squamous Epith Cells None seen (0-5/HPF) Urine Bacteria Occasional (0-1) (None) Ur Culture Indicated? Cult not indicated Vol Urine Centrifuged 10ml (spun) Blood Type A Positive Point of Care Testing Test Results Positive Urine Dip Bedside Urine Glucose Negative Bedside Urine Bilirubin - Negative Bedside Urine Ketone - Negative Urine Specific [place] 1.005 Bedside Urine Occult Blood +++ Bedside Urine pH 6.0 Bedside Urine Protein - Negative Bedside Urine Urobilinogen - Negative Bedside Urine Nitrite - Negative Bedside Urine Leukocytes - Negative Esterase MDM Narrative Medical decision making narrative: 34-year-old female who is 5 weeks presents to the ED today with 2 days of vaginal spotting and pelvic cramping. Concern for vaginal bleeding during versus miscarriage versus other. Will obtain labs, quantitative hCG, type and screen, ultrasound. Ultrasound shows a of unknown location, as no intrauterine is seen and there is no adnexal mass. HCG is 384. Labs within normal limits. Patient is blood type A positive. Discussed findings with patient of possible miscarriage versus early . Recommend patient follow[facility]up [facility] for serial ultrasounds and hCG. ED return precautions discussed with patient. Patient verbalized understanding. Medical records reviewed: Yes <Amada Painter, - Last Filed: 02/24/25 10:10> Lab Data Labs: Lab Results 02/23/25 02/23/25 Range/Units 13:10 13:16 WBC 9.2 (4.5-11.0) X10^3/uL RBC 4.59 (4.0-5.2) X10^6/uL Hgb 13.3 (12.0-16.0) g/dL Hct 39.4 (36-46) % MCV 85.7 (80-100) fL MCH 29.0 (26-34) PG MCHC 33.8 (30-36) % RDW 13.8 (11.6-14.8) % Plt Count 264 (150-400) X10^3/uL Neut % (Auto) 74.4 (50-75) % Lymph % (Auto) 16.8 L (25-40) % Treasure % (Auto) 6.4 (3-14) % Eos % (Auto) 1.8 L (2-4) % Baso % (Auto) 0.6 (0-2) % Neut # (Auto) 6800 (9830-9859) /uL Lymph # (Auto) 1500 (7288-6870) /uL Treasure # (Auto) 600 (0-900) /uL Eos # (Auto) 200 (0-450) /uL Baso # (Auto) 100 (0-100) /uL Sodium 139 (137-145) mmol/L Potassium 3.6 (3.4-5.1) mmol/L Chloride 107 (98-107) mmol/L Carbon Dioxide 24 (22-32) mmol/L BUN 8 (7-17) mg/dL Creatinine 0.62 (0.52-1.04) mg/dL Estimated GFR > 60 (>60) mL/min BUN/Creatinine Ratio 12.9 (6-22) Glucose 62 L (70-99) mg/dL Calcium 9.0 (8.4-10.2) mg/dL Total Bilirubin 0.5 (0.2-1.3) mg/dL AST 23 (14-36) IU/L ALT 17 (<35) IU/L Alkaline Phosphatase 49 (38-126) U/L Total Protein 7.8 (6.3-8.2) g/dL Albumin 4.7 (3.5-5.0) g/dL Globulin 3.1 (1.7-4.1) g/dL Albumin/Globulin Ratio 1.5 (1.0-2.8) HCG, Quant 384.91 mIU/mL Urine RBC 10-30/hpf H (0-5/HPF) Urine WBC None seen (0-5/HPF) Ur Squamous Epith Cells None seen (0-5/HPF) Urine Bacteria Occasional (0-1) (None) Ur Culture Indicated? Cult not indicated Vol Urine Centrifuged 10ml (spun) Blood Type A Positive Point of Care Testing Test Results Positive Urine Dip Bedside Urine Glucose Negative Bedside Urine Bilirubin - Negative Bedside Urine Ketone - Negative Urine Specific [place] 1.005 Bedside Urine Occult Blood +++ Bedside Urine pH 6.0 Bedside Urine Protein - Negative Bedside Urine Urobilinogen - Negative Bedside Urine Nitrite - Negative Bedside Urine Leukocytes - Negative Esterase Discharge Plan Departure Patient Disposition: Home Clinical Impression: Vaginal bleeding during Instructions: DI for Vaginal Bleeding During Activity Restrictions/Additional Instructions: You were evaluated in the emergency department today for vaginal bleeding during . The ultrasound today does not show a uterine . However, your hormone hCG is 384. While there is a chance that you are having a miscarriage, it is very early in the , and it is advisable to do serial ultrasounds and hCG tests to further evaluate and track the . It is recommended that you follow-up with [facility] by calling [phone] for further evaluation. Return to the ED if you have worsening symptoms. Prescriptions: No Action No Known Home Medications Stand Alone Forms: Patient Portal/API ED Sign-out <Amada Painter DO - Last Filed: 02/24/25 10:10> Cosign ED Attending Cosignature Attestation: I was immediately available in the department for consultation.
== END 2025-02-23 16:15 | disposition home or self-care (01) ==
PROVIDERS: Emergency Medicine; Emergency Provider Student in an Organized Health Care Education/Training Program
DX: O20.9 Hemorrhage in early pregnancy, unspecified (principal); R10.20 Pelvic and perineal pain unspecified side; Z3A.01 Less than 8 weeks gestation of pregnancy
CPT/HCPCS: 36415; 76830; 76856; 80053; 81003; 81015; 81025; 84702; 85025; 86900; 86901; 99282; 99284

== ENCOUNTER → 2025-02-26 10:38 | Outpatient (CLI) | payer SELFPAY ==
[2025-02-26 12:35] LABS: HCG Quantitative /Beta subunit 49.76 mIU/mL
== END ==
PROVIDERS: PCP Obstetrics & Gynecology; Referring Provider Obstetrics & Gynecology; Visit Provider Obstetrics & Gynecology
DX: O46.90 Antepartum hemorrhage, unspecified, unspecified trimester (principal)
CPT/HCPCS: 36415; 84702